=== PATIENT | female | born 1955 | race Caucasian/White ===

== ENCOUNTER 2017-12-02 08:48 | Outpatient (CLI) | payer BC | END 2017-12-02 08:49 | disposition home or self-care (01) | LOC: BICMAMMO 08:48 | PROVIDERS: ATTEND Internal Medicine | DX: Z12.31 Encounter for screening mammogram for malignant neoplasm of breast (principal); N64.89 Other specified disorders of breast; Z80.3 Family history of malignant neoplasm of breast | CPT/HCPCS: 77063; 77067 ==

== ENCOUNTER 2017-12-08 12:59 | Outpatient (CLI) | payer BC | END 2017-12-08 13:00 | disposition home or self-care (01) | LOC: BICMAMMO 12:59 | PROVIDERS: ATTEND Internal Medicine | DX: N63.10 Unspecified lump in the right breast, unspecified quadrant (principal); N64.89 Other specified disorders of breast | CPT/HCPCS: G0279 ==

== ENCOUNTER 2017-12-21 15:25 | Outpatient (CLI) | payer BC ==
[~2017-12-21 15:25] MED LIST: Gadobenate Dimeglumine 529 MG/1 ML (20ML VIAL) ONE
== END 2017-12-21 15:26 | disposition home or self-care (01) ==
LOC: BICMRI 15:25
PROVIDERS: ATTEND Internal Medicine
DX: R92.8 Other abnormal and inconclusive findings on diagnostic imaging of breast (principal)
CPT/HCPCS: A9579; C8908

== ENCOUNTER 2017-12-27 14:26 | Emergency (ER) | payer BC ==
[2017-12-27] MEDS ORDERED: Adacel (T-DAP) 0.5 ML VIAL ONE (14:59)
[2017-12-27] MEDS ORDERED: Lidocaine 1% w/Epinephrine 1:100K 30 ML VIAL ONE (15:13)
--- NOTE | 2017-12-27 15:23 | CT ---
CT BRAIN: Date: 12/27/17 HISTORY: Right skull trauma with right frontal scalp laceration. TECHNIQUE: Noncontrast enhanced CT images of brain obtained. FINDINGS: A right small frontal scalp hematoma is seen. No underlying calvarial fracture is seen. No evidence o f coup or contrecoup type intracranial abnormalities or lesions are seen. The ventricles are of lacy l size. IMPRESSION: Small right frontal scalp hematoma. Otherwise, unremarkable CT brain. POS: H
[2017-12-27] MEDS ORDERED: Bacitracin Zinc 1 Packet ONE (15:40)
== END 2017-12-27 15:40 | disposition home or self-care (01) ==
LOC: SCSER 14:26
DX: S01.81XA Laceration without foreign body of other part of head, initial encounter (principal); S80.212A Abrasion, left knee, initial encounter; S80.211A Abrasion, right knee, initial encounter; Z23 Encounter for immunization; I10 Essential (primary) hypertension; E11.9 Type 2 diabetes mellitus without complications; E78.5 Hyperlipidemia, unspecified; Z79.84 Long term (current) use of oral hypoglycemic drugs; Z79.82 Long term (current) use of aspirin; Z79.899 Other long term (current) drug therapy; W01.198A Fall on same level from slipping, tripping and stumbling with subsequent striking against other object, initial encounter
CPT/HCPCS: 12011; 70450; 90471; 90715; J2001